=== PATIENT | female | born 1995 | race Caucasian/White ===

== ENCOUNTER 2017-10-06 12:21 | Emergency (ER) | payer BC ==
[~2017-10-06] VITALS: Ht 162.6 cm; Wt 77.3 kg
[~2017-10-06 12:21] MED LIST: PREDNISONE20 MG PO; ZITHROMAX Z-PA250 MG PO
[2017-10-06 13:19] LABS: HEMATOCRIT 47.4 % (36.0-46.0); HEMOGLOBIN 16.2 G/DL (11.9-15.5); MCH 30.6 PG (29.0-34.0); MCHC 34.2 G/DL (30.0-36.0); MCV 89.6 FL (83-99); PLATELET COUNT 229 K/uL (156-360); RBC DIS.WIDTH-CV 11.9 % (11.8-14.6); RBC DIS.WIDTH-SD 38.4 % (39-53); RED BLOOD COUNT 5.29 M/uL (3.80-5.20); WHITE BLOOD COUNT 5.9 K/uL (4.1-10.2)
[2017-10-06 13:34] LABS: CHLORIDE 106 mEq/L (99-109)
[2017-10-06 13:35] LABS: POTASSIUM 3.9 mEq/L (3.7-5.4); SODIUM 141 mEq/L (136-147)
[2017-10-06 13:37] LABS: GLUCOSE 84 mg/dL (70-99); TOTAL PROTEIN 8.4 g/dL (6.4-8.3)
[2017-10-06 13:39] LABS: TOTAL BILIRUBIN 0.4 mg/dL (0.0-1.0)
[2017-10-06 13:40] LABS: ALKALINE PHOSPHATASE 75 IU/L (3-129)
[2017-10-06 13:41] LABS: CREATININE 0.8 mg/dL (0.6-1.3); GFR ESTIMATE (CALCULATED) > 59 mL/min/
[2017-10-06 13:42] LABS: AST (GOT) 21 IU/L (2-34); UREA NITROGEN (BUN) 8 mg/dL (9-23)
[2017-10-06 13:43] LABS: ALT (GPT) 22 IU/L (3-49)
[2017-10-06 13:52] LABS: QUANTITATIVE HCG < 4.0 MIU/ML
[2017-10-06 14:09] LABS: LIPASE 30 U/L (1.0-51.0)
[2017-10-06 14:36] LABS: APPEARANCE CLEAR ((CLEAR)); BILIRUBIN NEGATIVE; BLOOD NEGATIVE; COLOR STRAW ((YELLOW)); GLUCOSE (STRIP) NEGATIVE; KETONES NEGATIVE; LEUKOCYTES TRACE; NITRITE NEGATIVE; PROTEIN (STRIP) NEGATIVE; SPECIFIC GRAVITY 1.009 (1.000-1.030); UROBILINOGEN 0.2 MG/DL (0.2-1.0)
[2017-10-06 14:58] LABS: BACTERIA RARE /HPF; EPITHELIAL CELLS RARE /HPF; MUCUS TRACE /LPF; RED BLOOD CELLS 0-5 /HPF (0-5); UCUL ADDED? NO; WHITE BLOOD CELLS 0-5 /HPF (0-5)
[2017-10-06] MEDS ORDERED: MOTRIN600 MG PO (17:26)
[2017-10-06] MEDS ORDERED: ZOFRAN4 MG PO (17:26)
[2017-10-06 18:04] VITALS: BP 126/70
== END 2017-10-06 18:05 | disposition home or self-care (01) ==
LOC: EME 12:21
DX: K59.00 Constipation, unspecified (principal); R11.0 Nausea; K21.9 Gastro-esophageal reflux disease without esophagitis; J45.909 Unspecified asthma, uncomplicated
CPT/HCPCS: 74177; 80053; 81003; 83690; 84702; 85027; 99281; 99284; J1885; J2405; J3010; J7030